=== PATIENT | female | born 1935 | race Caucasian/White ===

== ENCOUNTER 2024-06-28 14:15 | Emergency (ER) | payer OTHER, SELFPAY ==
[2024-06-28 14:24] VITALS: BP 120/71
--- NOTE | 2024-06-28 14:26 | ED.GENMED ---
ED Provider Triage
<Alex Tinoco Jr., PA-C - Last Filed: 06/28/24 14:28>
-
Patient seen by provider in Triage?: Seen in Triage
Attestation: A medical screening examination has been initiated by a qualified medical provider. Based on the assessment performed at this time, it has been determined that an emergent medical condition may exist and the patient has been informed
that further medical evaluation and possible additional diagnostic testing may be needed.
HPI: 89-year-old female presenting for low back pain. She was leaning over yesterday felt a pop in her back. Does have a history of compression fractures in the past. Initial imaging ordered for further assessment. No significant neurologic
symptoms associated.
GENERAL: Alert , in no apparent distress
EYE: No visual abnormalities.
NECK: Trachea midline
ENT: No visible abnormalities.
LUNGS: No acute respiratory distress
NEUROLOGICAL: Alert and oriented
SKIN: Skin intact. No visible changes.
MUSCULOSKELETAL: Moving extremities normally
PSYCH: Normal and appropriate interaction.
This is a medical evaluation conducted in person to initiate diagnostic evaluation and provide initial therapeutics. Please see further documentation by the treating clinician.
History of Present Illness
<Alex Tinoco Jr., PA-C - Last Filed: 06/28/24 14:28>
General
Chief Complaint: Back Pain
Time Seen by Provider: 06/28/24 14:57
<MARITZA Barragan - Last Filed: 06/28/24 16:06>
General
Source: patient and family
Exam Limitations: none
Nursing documentation reviewed up to this point in time: agreed with
History of Present Illness
History of Present Illness:
Patient is an 81-year-old female who presents with low back pain. 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
lower back. She denies any radiation of pain. She denies any loss of bowel or bladder. Denies any numbness tingling weakness in extremities. She has an alternating Tylenol and Aleve. She does live at home with daughter and does use a walker for
ambulation. She denies any trauma.
Past History
<Alex Tinoco Jr., PA-C - Last Filed: 06/28/24 14:28>
Past History
ED Past Medical History: Cancer (Breast) and HTN
ED Past Surgical History: Other (Lumpectomy)
Social History
Tobacco: Non-smoker
Alcohol: None
Family History
Family History: Negative Diabetes, Hypertension or CAD
Review of Systems
<MARITZA Barragan - Last Filed: 06/28/24 16:06>
Review of Systems
Allergies reviewed?: Yes
All Other Systems: ROS reviewed and negative except as documented in HPI and ROS
Constitutional: Reports no symptoms
Respiratory: Reports no symptoms
Cardiac: Reports no symptoms
ABD/GI: Reports no symptoms
: Reports no symptoms; Denies incontinence
Musculoskeletal: Reports back pain (low back pain ; right sided )
Neurological: Reports no symptoms; Denies numbness
Psychiatric: Reports no symptoms
Phy Exam
<MARITZA Barragan - Last Filed: 06/28/24 16:06>
General Physical Exam
General Presentation: no apparent distress
General age: appears stated age
General Skin: warm and dry
General Habitus: normal
General Mental: alert
General Hydration: appears well hydrated
Cardiovascular Exam
Cardiovascular Exam: regular rate/rhythm, no murmur and normal peripheral pulses
Pulmonary Exam
Pulmonary Exam: lungs clear and no respiratory distress
Neurological Exam
Neurological Exam: alert, oriented x3, no motor deficits, no sensory deficits and other (Normal distal sensation bilateral lower extremities normal dorsiflexion plantarflexion negative straight leg raise bilaterally)
Musculoskeletal Exam
Musculoskeletal Exam: other (Normal inspection to lower back patient is mildly tender over the right paralumbar region and buttocks no bony midline tenderness no ecchymosis or abrasions no flank tenderness)
Skin Exam
Skin Exam: normal color and warm/dry
Psychiatric Exam
Psychiatric Exam: normal mood/affect
Course
<Alex Tinoco Jr., PA-C - Last Filed: 06/28/24 14:28>
Orders/Labs/Results
Orders:
Orders
06/28/24 14:25
Lumbar Spine, 2 or 3 View [CR Lumbar Spine 2 Or 3 Views] Urgent
Comment:
Reason For Exam: low back pain
06/28/24 15:52
Lidocaine [Lidocaine 4% Patch] 1 patch TOPICAL NOW STA
Apply Lidocaine patch(s) to:: right lower back
Vital Signs
Initial and Last Documented VS:
Initial Vital Signs
Pulse Resp BP Pulse Ox
97 18 120/71 97
06/28/24 14:24 06/28/24 14:24 06/28/24 14:24 06/28/24 14:24
Last Documented Vital Signs
Pulse Resp BP Pulse Ox
97 18 120/71 97
06/28/24 14:24 06/28/24 14:24 06/28/24 14:24 06/28/24 14:24
<MARITZA Barragan - Last Filed: 06/28/24 16:06>
Orders/Labs/Results
Orders:
Orders
06/28/24 14:25
Lumbar Spine, 2 or 3 View [CR Lumbar Spine 2 Or 3 Views] Urgent
Comment:
Reason For Exam: low back pain
06/28/24 15:52
Lidocaine [Lidocaine 4% Patch] 1 patch TOPICAL NOW STA
Apply Lidocaine patch(s) to:: right lower back
Vital Signs
Initial and Last Documented VS:
Initial Vital Signs
Pulse Resp BP Pulse Ox
97 18 120/71 97
06/28/24 14:24 06/28/24 14:24 06/28/24 14:24 06/28/24 14:24
Last Documented Vital Signs
Pulse Resp BP Pulse Ox
97 18 120/71 97
06/28/24 14:24 06/28/24 14:24 06/28/24 14:24 06/28/24 14:24
<MARITZA Barragan - Last Filed: 06/28/24 16:06>
MDM/Problems Addressed
Differential Diagnosis Includes:
Not limited to muscle strain, compression fracture
MDM/Problems Addressed:
Symptoms are likely muscle strain based on mechanism however patient also has new or vertebral compression fractures on x-ray that were not there in 2020. It is a possibility that this is new as well from injury. I did review this with patient and
daughter. Patient however stable no acute distress well-appearing feels like she can manage this with Aleve and Tylenol .patient has not done well with previous narcotics in the past and with patient's age and poor balance issues we will hold off
,however I did apply a lidocaine patch and sent prescription to pharmacy. Discussed that this will likely need physical therapy. Discussed importance of using a walker and to avoid bending lifting. Discussed ice heat etc. Patient is follow-up
with orthopedics and family doctor .
<MARITZA Barragan - Last Filed: 06/28/24 16:06>
*Critical Care Note
Total Time (30-74mins, 75-104mins- exclusive of procedures): Not Applicable
ED Attending Note
<Alex Tinoco Jr., PA-C - Last Filed: 06/28/24 14:28>
-
Portions of this chart may have been created with voice recognition software.� Occasional wrong word or��sound alike� substitutions may have occurred due to the inherent limitations of voice recognition software.
Discharge Plan
Departure
Patient Disposition: Home (Routine Discharge)
Date of Disposition: 06/28/24
Time of Disposition: 15:53
Patient with high blood pressure during this ER visit?: No
Condition: Fair
Covid-19: Not Applicable
Discharge Problem:
Lumbar strain, verebral compression fracture
Instructions: Low back pain in adults, Back Muscle Strain, Vertebral Compression Fracture ED
Prescriptions:
New
lidocaine 5 % adhesive patch,medicated
1 patch topical DAILY Qty: 15 0RF
No Action
docusate sodium 100 MG capsule
100 mg PO BID 0RF
guaifenesin [Mucus Relief ER] 600 MG tablet extended release 12hr
600 mg PO Q12 0RF
cefdinir [Omnicef] 300 MG capsule
300 mg PO BID Qty: 10 0RF
Referrals:
Candy Moss DO [Family Provider] -
Lonnie Connor MD [Active] -
Activity Restrictions/Additional Instructions:
As discussed continue to alternate ice and heat. You may continue your Tylenol and alternate with Aleve. A prescription for lidocaine patch was sent to your pharmacy use as directed. Remove after 12 hours. Follow-up with your family doctor as
well as orthopedics in the next several days. It is recommended likely that you will need physical therapy. Avoid bending and lifting until symptoms are resolved and you are cleared by a physician.
Avoid prolonged position
Return if any worsening of symptoms if increased pain if loss of bowel or bladder weakness in lower extremities or any further concerns.
Discharge Date and Time
Print Language: GEORGIAN
[2024-06-28] MEDS: LIDOCAINE 4% PATCH 1 PATCH TOPICAL (16:09)
[2024-06-28 16:10] VITALS: BP 157/92
== END 2024-06-28 16:13 | disposition home or self-care (01) ==
LOC: EMR 14:15
PROVIDERS: EMERGENCY PHYSICIAN Emergency Medicine; FAMILY PHYSICIAN Family Medicine
DX: M48.56XA Collapsed vertebra, not elsewhere classified, lumbar region, initial encounter for fracture (principal); I10 Essential (primary) hypertension
CPT/HCPCS: 99283; 72100